=== PATIENT | male | born 1965 | race Caucasian/White ===

== ENCOUNTER 2019-01-30 19:07 | Emergency (ER) | payer OTHER ==
[~2019-01-30] VITALS: Ht 177.8 cm; Wt 82.0 kg
[2019-01-30] MEDS ORDERED: ACETAMINOPHEN 325MG TABLET PO STA (22:14)
[2019-01-30 22:25] VITALS: BP 127/80
== END 2019-01-30 22:25 | disposition home or self-care (01) ==
LOC: ER 19:07
DX: F43.20 Adjustment disorder, unspecified (principal); K40.90 Unilateral inguinal hernia, without obstruction or gangrene, not specified as recurrent; E11.9 Type 2 diabetes mellitus without complications
CPT/HCPCS: 82962; 99283